=== PATIENT | male | born 1995 | race Caucasian/White ===

== ENCOUNTER 2017-08-28 22:22 | Emergency (ER) | payer BC ==
[~2017-08-28] VITALS: Ht 175.2 cm; Wt 72.6 kg
[~2017-08-28 22:22] MED LIST: CLARITIN10 MG PO; IBU-6600 MG PO; ROBITUSSIN CF240 ML PO; TAMIFLU 75MG CA75 MG PO; TYLENOL W/CODEI1 TA2 PO; ZITHROMAX Z PA250 MG PO; Zofran4 MG PO
[2017-08-28] MEDS ORDERED: PROVENTIL HFA6.7 GM INH (22:26)
[2017-08-29] MEDS ORDERED: CYCLOBENZAPRINE10 MG PO (00:05)
[2017-08-29] MEDS ORDERED: NAPROSYN500 MG PO (00:05)
== END 2017-08-29 00:36 | disposition home or self-care (01) ==
LOC: ED 22:22
DX: S29.012A Strain of muscle and tendon of back wall of thorax, initial encounter (principal); X58.XXXA Exposure to other specified factors, initial encounter; Y93.89 Activity, other specified; Y92.89 Other specified places as the place of occurrence of the external cause; Y99.8 Other external cause status

== ENCOUNTER 2020-08-17 14:50 | Emergency (ER) | payer BC ==
[~2020-08-17] VITALS: Wt 77.6 kg
[~2020-08-17 14:50] MED LIST changes: +CYCLOBENZAPRINE10 MG PO; +NAPROSYN500 MG PO; +PROVENTIL HFA6.7 GM INH
[2020-08-17] MEDS ORDERED: IBUPROFEN600 MG PO (16:14)
== END 2020-08-17 16:29 | disposition home or self-care (01) ==
LOC: ED 14:50
DX: M79.661 Pain in right lower leg (principal); J45.909 Unspecified asthma, uncomplicated; Z79.899 Other long term (current) drug therapy

== ENCOUNTER → 2020-10-03 | Outpatient (CLI) | payer BC ==
[~2020-10-03] MED LIST changes: +IBUPROFEN600 MG PO; +VISTARIL25 M2 PO
[2020-10-03 12:56] LABS: ALBUMIN 4.1 gm/dl (3.1-4.5); BUN 9 mg/dl (7-24); CHLORIDE 103 mmol/L (98-107); CHOLESTEROL 204 mg/dL (<200); CPK 76 U/L (39-308); CREATININE 1.13 mg/dL (0.70-1.30); HDL CHOLESTEROL 72 mg/dl (40-60); LDL CHOLESTEROL 116 mg/dL (9-159); POTASSIUM 4.2 mmol/L (3.5-5.1); SGOT/AST 10 IU/L (3-35); SGPT/ALT 19 U/L (12-78); SODIUM 137 mmol/L (136-145); TRIGLYCERIDES 79 mg/dl (<150); VLDL CHOLESTEROL 16 mg/dL (6-40)
[2020-10-03 13:01] LABS: ALKALINE PHOSPHATASE 66 U/L (45-117); THYROID STIM HORMONE (HS) 0.935 uIU/ml (0.358-4.75)
[2020-10-03 13:29] LABS: VITAMIN D, 25-HYDROXY 27.3 ng/mL (30-100)
[2020-10-04 07:06] LABS: HEP B CORE AB, IGM Negative (Negative); HEPATITIS B SURFACE AG Negative (Negative); HEPATITIS C VIRUS ANTIBODY <0.1 s/co (0.0-0.9)
== END | disposition home or self-care (01) ==
LOC: LAB 11:55
PROVIDERS: ATTEND Family Medicine
DX: E55.9 Vitamin D deficiency, unspecified (principal); E78.00 Pure hypercholesterolemia, unspecified; J02.9 Acute pharyngitis, unspecified; M79.10 Myalgia, unspecified site; R53.83 Other fatigue; M25.50 Pain in unspecified joint; R53.1 Weakness

== ENCOUNTER 2020-10-07 17:06 | Emergency (ER) | payer BC ==
[~2020-10-07] VITALS: Ht 175.2 cm; Wt 76.7 kg
[~2020-10-07 17:06] MED LIST changes: -VISTARIL25 M2 PO
[2020-10-07 19:11] LABS: BASO % 0.4 % (0.0-1.0); EOS # 0.1 10*3/uL (0.0-0.4); EOS % 1.4 % (1.0-4.0); HEMATOCRIT 45.3 % (42.0-52.0); LYMPH # 3.4 10*3/uL (1.3-4.4); LYMPH % 42.3 % (27.0-41.0); MEAN CELL VOLUME 86.1 fl (80.0-94.0); MEAN CORPUSCULAR HGB 29.5 pg (27.0-31.0); MEAN CORPUSCULAR HGB CONC 34.2 g/dl (33.0-37.0); MEAN PLATELET VOLUME 9.9 fl (9.6-12.3); MONO # 0.6 10*3/uL (0.1-1.0); MONO % 6.9 % (3.0-9.0); NEUT % 48.6 % (47.0-73.0); PLATELET COUNT AUTOMATED 303 10*3/uL (130-400); RED BLOOD COUNT 5.26 10*6/uL (4.50-5.90); RED CELL DISTRI WIDTH 11.4 % (0-14.5); WHITE BLOOD COUNT 8.1 10*3/uL (4.8-10.8)
[2020-10-07 19:19] LABS: BILIRUBIN Negative (Negative); BLOOD Negative (Negative); CLARITY Clear (Clear); COLOR Yellow (Yellow); GLUCOSE Negative (Negative); KETONE 1+ (Negative); LEUKO ESTERASE Negative (Negative); NITRITE Negative (Negative); PH 5.5 (4.5-8.0); SPECIFIC GRAVITY <= 1.005 (1.001-1.030); UROBILINOGEN 0.2 E.U./dl (0.0-1.0)
[2020-10-07 19:23] LABS: ALBUMIN 4.3 gm/dl (3.1-4.5); ALKALINE PHOSPHATASE 61 U/L (45-117); BUN 20 mg/dl (7-24); CHLORIDE 101 mmol/L (98-107); CREATININE 1.09 mg/dL (0.70-1.30); POTASSIUM 3.7 mmol/L (3.5-5.1); SGOT/AST 18 IU/L (3-35); SGPT/ALT 24 U/L (12-78); SODIUM 139 mmol/L (136-145); TOTAL PROTEIN 7.8 gm/dL (6.4-8.2)
[2020-10-07 19:46] LABS: WBC 0-2 wbc/hpf (0-5)
[2020-10-07 19:48] LABS: EPITHELIAL CELLS 0-2
[2020-10-07] MEDS ORDERED: VISTARIL25 M2 PO (21:19)
== END 2020-10-07 21:45 | disposition home or self-care (01) ==
LOC: ED 17:06
PROVIDERS: Physician Assistant
DX: F41.0 Panic disorder [episodic paroxysmal anxiety] (principal); Z79.899 Other long term (current) drug therapy

== ENCOUNTER → 2020-10-16 | Outpatient (CLI) | payer BC ==
[~2020-10-16] MED LIST changes: +VISTARIL25 M2 PO
== END | disposition home or self-care (01) ==
LOC: LAB 11:06
PROVIDERS: ATTEND Family Medicine
DX: M25.50 Pain in unspecified joint (principal)

== ENCOUNTER → 2022-04-21 | Outpatient (CLI) | payer BC ==
[2022-04-21 16:50] LABS: HEMATOCRIT 45.2 % (42.0-52.0); MEAN CELL VOLUME 88.3 fl (80.0-94.0); MEAN CORPUSCULAR HGB 30.3 pg (27.0-31.0); MEAN CORPUSCULAR HGB CONC 34.3 g/dl (33.0-37.0); RED BLOOD COUNT 5.12 10*6/uL (4.50-5.90); RED CELL DISTRI WIDTH 12.5 % (0-14.5); WHITE BLOOD COUNT 5.3 10*3/uL (4.8-10.8)
[2022-04-21 17:05] LABS: ALKALINE PHOSPHATASE 57 U/L (45-117); BUN 18 mg/dl (7-24); CHLORIDE 102 mmol/L (98-107); CHOLESTEROL 240 mg/dL (<200); CREATININE 1.57 mg/dL (0.70-1.30); LDL CHOLESTEROL 152 mg/dL (9-159); POTASSIUM 3.9 mmol/L (3.5-5.1); SGOT/AST 15 IU/L (3-35); SGPT/ALT 33 U/L (12-78); SODIUM 136 mmol/L (136-145); TOTAL PROTEIN 7.2 gm/dL (6.4-8.2); TRIGLYCERIDES 65 mg/dl (<150)
[2022-04-21 17:34] LABS: VITAMIN D, 25-HYDROXY 24.1 ng/mL (30-100)
[2022-04-24 20:06] LABS: FREE PSA 0.143 ng/mL (.)
== END | disposition home or self-care (01) ==
LOC: LAB 16:22
PROVIDERS: ATTEND Family Medicine
DX: I10 Essential (primary) hypertension (principal); F41.1 Generalized anxiety disorder; E74.00 Glycogen storage disease, unspecified; R53.83 Other fatigue; E55.9 Vitamin D deficiency, unspecified; N41.9 Inflammatory disease of prostate, unspecified

== ENCOUNTER → 2022-05-18 | Outpatient (CLI) | payer BC ==
[2022-05-18 13:03] LABS: ALKALINE PHOSPHATASE 56 U/L (46-116); BUN 11 mg/dl (9-23); CHLORIDE 102 mmol/L (98-107); CREATININE 1.17 mg/dL (0.70-1.30); POTASSIUM 4.3 mmol/L (3.4-5.1); SGPT/ALT 28 U/L (10-49); SODIUM 137 mmol/L (136-145); TOTAL PROTEIN 7.3 gm/dL (6.0-8.0)
== END | disposition home or self-care (01) ==
LOC: LAB 12:27
PROVIDERS: ATTEND Family Medicine
DX: N28.9 Disorder of kidney and ureter, unspecified (principal)

== ENCOUNTER → 2022-12-28 | Day surgery (SDC) | payer BC ==
[~2022-12-28] VITALS: Ht 175.2 cm; Wt 70.3 kg
[~2022-12-28] MED LIST changes: +ALLEGRA ALLERG180 M2 PO; +CARAFATE1 G1 PO; +DEXILANT60 M1 PO; +FLONASE ALLERG9.9 ML NAS; +SINGULAIR10 M1 PO
[2022-12-28 09:15] VITALS: BP 123/77
[2022-12-28 11:30] VITALS: BP 98/62
[2022-12-28 11:45] VITALS: BP 104/59
[2022-12-28 11:58] VITALS: BP 104/65
== END ==
LOC: SDC 12-24 13:15
PROVIDERS: ATTEND Surgery
DX: K21.9 Gastro-esophageal reflux disease without esophagitis (principal); K30 Functional dyspepsia; K29.50 Unspecified chronic gastritis without bleeding; I10 Essential (primary) hypertension; J45.909 Unspecified asthma, uncomplicated; F17.200 Nicotine dependence, unspecified, uncomplicated; Z98.818 Other dental procedure status; Z79.899 Other long term (current) drug therapy

== ENCOUNTER 2023-02-14 22:59 | Emergency (ER) | payer BC ==
[~2023-02-14] VITALS: Ht 175.2 cm; Wt 70.3 kg
[2023-02-14 23:35] LABS: BASO % 0.3 % (0.0-1.0); EOS # 0.1 10*3/uL (0.0-0.4); EOS % 0.9 % (1.0-4.0); HEMATOCRIT 42.1 % (42.0-52.0); LYMPH # 3.7 10*3/uL (1.3-4.4); LYMPH % 52.3 % (27.0-41.0); MEAN CELL VOLUME 85.7 fl (80.0-94.0); MEAN CORPUSCULAR HGB 30.3 pg (27.0-31.0); MEAN CORPUSCULAR HGB CONC 35.4 g/dl (33.0-37.0); MEAN PLATELET VOLUME 10.1 fl (9.6-12.3); MONO # 0.5 10*3/uL (0.1-1.0); MONO % 7.4 % (3.0-9.0); NEUT # 2.8 10*3/uL (2.3-7.9); PLATELET COUNT AUTOMATED 247 10*3/uL (130-400); RED BLOOD COUNT 4.91 10*6/uL (4.50-5.90); RED CELL DISTRI WIDTH 11.4 % (0-14.5)
[2023-02-14 23:47] LABS: ACT PARTIAL THROMBO TIME 29.1 SECONDS (20.0-32.1)
[2023-02-14 23:55] LABS: ALKALINE PHOSPHATASE 62 U/L (46-116); BUN 12 mg/dl (9-23); CHLORIDE 101 mmol/L (98-107); LIPASE 43 U/L (12-53); POTASSIUM 3.2 mmol/L (3.4-5.1); SGPT/ALT 33 U/L (10-49); TOTAL PROTEIN 7.2 gm/dL (6.0-8.0)
== END 2023-02-15 01:26 | disposition home or self-care (01) ==
LOC: ED 22:59
PROVIDERS: Internal Medicine
DX: R33.9 Retention of urine, unspecified (principal); R10.9 Unspecified abdominal pain; R14.2 Eructation; F17.210 Nicotine dependence, cigarettes, uncomplicated; Z79.899 Other long term (current) drug therapy

== ENCOUNTER 2024-09-19 11:24 | Emergency (ER) | payer OTHER ==
[~2024-09-19] VITALS: Wt 81.6 kg
[2024-09-19] MEDS ORDERED: LACTULOSE 20 GM/30 ML UDC PO ONE (12:25)
[2024-09-19] MEDS ORDERED: Na Phos, Dibasic/Na Phos, Mo 1 EA BOT R ONE (12:30)
[2024-09-19] MEDS ORDERED: IOHEXOL 300 MG/ML 100 ML VIAL IV ONE (14:00)
[2024-09-19] MEDS ORDERED: SODIUM CHLORIDE 0.9% 1,000 ML IV ONE (14:00)
[2024-09-19 14:12] LABS: BASO % 0.4 % (0.0-1.0); EOS % 0.5 % (1.0-4.0); MEAN CORPUSCULAR HGB 30.2 pg (27.0-31.0); MEAN PLATELET VOLUME 10.3 fl (9.6-12.3); MONO # 0.3 10*3/uL (0.1-1.0); MONO % 3.7 % (3.0-9.0); NEUT # 5.6 10*3/uL (2.3-7.9); PLATELET COUNT AUTOMATED 249 10*3/uL (130-400); RED BLOOD COUNT 4.83 10*6/uL (4.50-5.90); RED CELL DISTRI WIDTH 11.4 % (0-14.5); WHITE BLOOD COUNT 8.1 10*3/uL (4.8-10.8)
[2024-09-19 14:33] LABS: ALKALINE PHOSPHATASE 64 U/L (46-116); BUN 9 mg/dl (9-23); CHLORIDE 104 mmol/L (98-107); LIPASE 35 U/L (12-53); POTASSIUM 3.9 mmol/L (3.4-5.1); SGPT/ALT 23 U/L (5-49); TOTAL PROTEIN 7.1 gm/dL (6.0-8.0)
[2024-09-19] MEDS ORDERED: Magnesium Hydroxide 30 ML UDC PO ONE (16:00)
[2024-09-19] MEDS ORDERED: MINERAL OIL 133 ML BOT R ONE (16:00)
[2024-09-19] MEDS ORDERED: [UNRECOGNIZED DRUG - OTHER] (17:50)
== END 2024-09-19 18:23 | disposition home or self-care (01) ==
LOC: ED 11:24
PROVIDERS: Internal Medicine
DX: K59.00 Constipation, unspecified (principal); J45.909 Unspecified asthma, uncomplicated; Z79.899 Other long term (current) drug therapy

== ENCOUNTER 2025-03-20 19:29 | Emergency (ER) | payer OTHER ==
[~2025-03-20] VITALS: Ht 177.8 cm; Wt 83.9 kg
[~2025-03-20 19:29] MED LIST changes: +[UNRECOGNIZED DRUG - OTHER]
[2025-03-20] MEDS ORDERED: CEPHALEXIN500 M1 PO (19:57)
[2025-03-20] MEDS ORDERED: CEPHALEXIN 500 MG CAP PO ONE (20:00)
== END 2025-03-20 20:24 | disposition home or self-care (01) ==
LOC: ED 19:29
DX: L03.115 Cellulitis of right lower limb (principal); J45.909 Unspecified asthma, uncomplicated